=== PATIENT | male | born 1955 | race Caucasian/White ===

== ENCOUNTER 2024-02-21 08:47 | Outpatient (CLI) | payer MEDICARE, BC, SELFPAY | END 2024-02-21 08:48 | disposition home or self-care (01) | LOC: ANHAUDIO 08:48 | PROVIDERS: PCP Internal Medicine; Visit Provider Otolaryngology | DX: H93.13 Tinnitus, bilateral (principal); H90.3 Sensorineural hearing loss, bilateral | CPT/HCPCS: 92557; 92567 ==